=== PATIENT | male | born 1975 ===

== ENCOUNTER 2020-12-15 14:58 | Emergency (ER) | payer SELFPAY ==
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
--- NOTE | 2020-12-15 19:22 | XRay Report ---
RIGHT KNEE 3 VIEWS INDICATION: Right knee pain after fall last week. COMPARISON: No relevant prior imaging study available. FINDINGS: No acute, displaced fracture or dislocation is seen. No significant degenerative changes. There is a small joint effusion. IMPRESSION: 1. Small joint effusion. No acute skeletal abnormality. Signer Name: Haseeb Carbone MD Signed: 12/15/2020 7:17 PM Workstation Name: [id number]
[2020-12-15 19:45] LABS: Hematocrit 38.2 % (35.5-45.6); Hemoglobin 13.1 gm/dl (11.8-15.2); Mean Corpuscular HGB Conc 34 % (32-34); Mean Corpuscular Volume 100 fl (84-94); Platelet Count 250 K/mm3 (140-440); Red Blood Count 3.82 M/mm3 (3.65-5.03); Red Cell Distribution Width 14.6 % (13.2-15.2)
[2020-12-15 19:56] LABS: INR 1.01 (0.87-1.13)
[2020-12-15 19:57] LABS: Partial Thromboplastin Time 27.5 Sec. (24.2-36.6)
[2020-12-15] MEDS ORDERED: ceFAZolin 1 GM VIAL IM ONE (20:21)
[2020-12-15] MEDS ORDERED: LIDOCAINE-MPF (1%) 10 MG/1 ML VIAL 5 ML INFILTRATI ONE (20:34)
[2020-12-15] MEDS ORDERED: WATER FOR INJ Sterile (PF) 10 ML IM ONE (20:39)
[2020-12-15 20:57] VITALS: BP 112/65
--- NOTE | 2020-12-15 21:39 | Vascular Lab Report ---
DUPLEX DOPPLER LOWER EXTREMITY VEINS, RIGHT INDICATION / CLINICAL INFORMATION: right leg pain/swelling/bruising. TECHNIQUE: Duplex doppler imaging was performed through the veins of the right lower extremity using venous comp ression and other maneuvers. COMPARISON: None available. FINDINGS: RIGHT COMMON FEMORAL VEIN: Negative. RIGHT FEMORAL VEIN: Negative. RIGHT POPLITEAL VEIN: Negative. RIGHT CALF VEINS: Negative. ADDITIONAL FINDINGS: None. IMPRESSION: 1. No sonographic evidence for DVT in the right lower extremity. Signer Name: Haseeb Carbone MD Signed: 12/15/2020 9:35 PM Workstation Name: [id number]
== END 2020-12-15 20:59 | disposition home or self-care (01) ==
LOC: ED 14:58
DX: T65.894A Toxic effect of other specified substances, undetermined, initial encounter (principal); S80.811A Abrasion, right lower leg, initial encounter; L03.116 Cellulitis of left lower limb; R79.1 Abnormal coagulation profile; M25.561 Pain in right knee; Z79.899 Other long term (current) drug therapy; Y92.89 Other specified places as the place of occurrence of the external cause; X58.XXXA Exposure to other specified factors, initial encounter; Y93.89 Activity, other specified; Y99.8 Other external cause status
CPT/HCPCS: 36415; 73562; 85027; 85610; 85730; 93971; 96372; 99285; J0690